=== PATIENT | female | born 1995 | race African-American/Black ===

== ENCOUNTER 2016-07-10 17:44 | Emergency (ER) | payer OTHER ==
[~2016-07-10] VITALS: Ht 162.6 cm; Wt 95.3 kg
[2016-07-10 18:19] VITALS: TEMP 36.8; Ht 162.6 cm; Wt 95.3 kg
[2016-07-10 18:50] LABS: BASO % 0.2 %; BASO ABS # 0.02 K/uL (0-0.2); COMPLETE YES; EOS % 3.6 %; HEMATOCRIT 37.3 % (37-47); IG% 0.2 %; LYMPH % 45.4 %; LYMPH ABS # 3.66 K/uL (1.2-3.4); MEAN CELL VOLUME 87.8 fL (80-100); MEAN CORPUSCULAR HEMOGLOBIN 28.9 pg (25-34); MONO % 6.2 %; NEUT % 44.4 %; PLATELET COUNT 355 K/uL (130-400); RED BLOOD COUNT 4.25 M/uL (4.2-5.4); WHITE BLOOD COUNT 8.07 K/uL (4.8-10.8)
[2016-07-10 19:01] LABS: URINE APPEARANCE CLOUDY (CLEAR); URINE BILIRUBIN NEG (NEG); URINE COLOR YELLOW; URINE EPITHELIAL CELL AUTO >30 /lpf (0-5); URINE NITRITE NEG (NEG); URINE PH 7.5 (4.5-7.5); URINE SPECIFIC GRAVITY 1.029 (1.000-1.030); UROBILINOGEN NEG (NEG); ZZUR CULT IF INDIC CLEAN CATCH YES
[2016-07-10 19:05] LABS: MANUAL MICROSCOPIC REQUIRED? NO; REVIEW REQ? NO
[2016-07-10 19:13] LABS: ALT/SGPT 28 U/L (12-78); AST/SGOT 19 U/L (15-37); BLOOD UREA NITROGEN 16 mg/dl (7-18); BUN/CREATININE RATIO 18.5 (10-20); CALCIUM 8.7 mg/dl (8.5-10.1); CARBON DIOXIDE 27 mmol/L (21-32); CHLORIDE 105 mmol/L (98-107); CREATININE 0.89 mg/dl (0.60-1.20); GLUCOSE 87 mg/dl (70-99); POTASSIUM 3.8 mmol/L (3.5-5.1); SODIUM 139 mmol/L (136-145)
[2016-07-10 19:16] LABS: ALKALINE PHOSPHATASE 71 U/L (45-117)
--- NOTE | 2016-07-10 19:22 | DIAGNOSTIC IMAGING REPORT ---
KUB HISTORY: constipation, lower abdominal pain COMPARISON: None. FINDINGS: No dilated loops of small bowel to suggest an obstruction. There is gas without throughout the colon. There is moderate well-formed stool within the ascending colon and sigmoid colon. No renal calculi. No ureteral calculi. No pneumoperitoneum or pneumatosis. IMPRESSION: No evidence for bowel obstruction. Moderate stool and gas within the colon. Electronically signed by: Vidal Caldera M.D. 07/10/2016 7:20 PM Dictated Date/Time: 07/10/2016 7:19 PM
[2016-07-10] MEDS ORDERED: IBUP-1451 PO (19:30)
[2016-07-10] MEDS ORDERED: MULT-506 PO (19:30)
[2016-07-10] MEDS ORDERED: BCPILLS PO (19:30)
[2016-07-10] MEDS ORDERED: BISA-16 PO (19:31)
[2016-07-10] MEDS ORDERED: PROM12.57 PO (19:36)
[2016-07-10] MEDS ORDERED: VNTHFA/IN INH (19:39)
[2016-07-10] MEDS ORDERED: EYED OPB (19:39)
[2016-07-10] MEDS ORDERED: KETOROLAC TROMETHAMINE 30 MG/ML VIAL IV STA (19:49)
--- NOTE | 2016-07-10 20:50 | DIAGNOSTIC IMAGING REPORT ---
PELVIC ULTRASOUND, TRANSABDOMINAL AND TRANSVAGINAL HISTORY: eval for ovarian cyst, lower pelvic pain COMPARISON: None. FINDINGS: Uterus: 7.6 x 4.6 x 4.0 cm. There is 9 mm hypoechoic lesion within the left side of the uterus. This favors a small fibroid. The uterus is retroflexed. Endometrial stripe: 1.2 cm in thickness. This is within normal limits given the patient's age. Right ovary: Normal in size and demonstrates normal color flow. Left ovary: Normal in size and demonstrates normal color flow. A dominant 1.9 cm follicle/cyst. Miscellaneous:Small amount of pelvic free fluid. IMPRESSION: 1. Normal bilateral ovaries. 2. Small amount of pelvic free fluid which may be physiologic. 3. A 9 mm hypoechoic lesion within the left side of the uterus which favors a small fibroid. Electronically signed by: Vidal Caldera M.D. 07/10/2016 8:48 PM Dictated Date/Time: 07/10/2016 8:46 PM
[2016-07-10] MEDS ORDERED: SOD PHOSPHATE/SOD BIPHOSPHATE ENEMA 132 ML BTL PR STA (21:20)
[2016-07-10] MEDS ORDERED: MAGNESIUM CITRATE 296 ML/BTL PO ONE (21:30)
[2016-07-10 21:44] VITALS: BP 107/51; PULSE 78; O2SAT 99
--- NOTE | 2016-07-11 03:17 | EMERGENCY ROOM VISIT NOTE ---
History Report prepared by Luz Elena: Rayo Evans Under the Supervision of: Dr. Puneet Barreto M.D. First contact with patient: 18:24 Chief Complaint: ABDOMINAL PAIN Stated Complaint: ABDOMINAL PAIN, STREP THROAT History of Present Illness The patient is a 21 year old female who presents to the Emergency Room with complaints of persistent bilateral lower abdominal pain staring about an hour ago. She did not have a bowel movement for the past 2 weeks. She has a history of similar pain occurring with severe constipation. She describes her current pain to be similar to her prior pain with constipation but reports the severity of her current pain is much worse than normal. She currently rates a pain intensity of "20/10". Her last abdominal pain flare up that was similar to her current one was about 2 months ago. She has laxatives but has not been taking it as prescribed. She denies any history of abdominal surgeries. The patient also complains of sorethroat occurring for the past 2 days. She has a history of strep throat. She is unsure about any recent ill contacts. Pt denies LOC, headache, fevers, chills, diaphoresis, visual changes, neck pain, chest pain, breathing difficulties, nausea, vomiting, back pain, melena, hematochezia, urinary symptoms, vaginal discharge, numbness, weakness, lymphadenopathy, rash, or other complaints. Her last normal menstrual period was 2 weeks ago. She is currently sexually active and uses protection. Source of History: patient Onset: about an hour ago Position: abdomen (bilateral lower) Symptom Intensity: "20/10" Timing: other (persistent) Associated Symptoms: + sorethroat Review of Systems See HPI for pertinent positives and negatives. A total of ten systems were reviewed and were otherwise negative. Past Medical & Surgical Medical Problems: (1) Asthma (2) Constipation Family History Cancer Diabetes mellitus Gallbladder disease Heart disease Hypertension Social History Smoking Status: Current Some Day Smoker Alcohol Use: occasionally Drug Use: none Marital Status: single Housing Status: lives with roommate Occupation Status: student Current/Historical Medications Scheduled Control Pills ( Control Pills), 1 TAB PO DAILY Eye Drops (Eye Drops), 2 DROPS OPB DAILY Multivitamin (Multivitamin), 1 TAB PO DAILY Scheduled PRN Albuterol Hfa (Ventolin Hfa), 2-4 PUFFS INH Q6H PRN for SOB/Wheezing Bisacodyl (Dulcolax), 2 TAB PO UD PRN for Constipation Ibuprofen Tab (Motrin), 800 MG PO BID PRN for Pain Promethazine (Phenergan ), 12.5 MG PO Q4H PRN for Nausea Allergies Coded Allergies: Apple (Verified Allergy, Unknown, unknown, 07/10/16) Pineapple (Verified Allergy, Unknown, unknown, 07/10/16) Physical Exam Vital Signs Date Time Temp Pulse Resp B/P Pulse Ox O2 Delivery O2 Flow Rate FiO2 07/10/16 21:44 78 18 107/51 99 07/10/16 20:47 95 18 107/75 98 Room Air 07/10/16 19:23 84 18 129/90 100 Room Air 07/10/16 18:19 36.8 105 16 125/79 96 Room Air Physical Exam GENERAL: Awake, alert, well-appearing, in no distress HENT: Normocephalic, atraumatic. Oropharynx unremarkable. Uvula midline. Tonsils unremarkable. EYES: Normal conjunctiva. Sclera non-icteric. NECK: Supple. No nuchal rigidity or meningismus. FROM. No JVD. RESPIRATORY: Clear to auscultation. CARDIAC: Regular rate, normal rhythm. Extremities warm and well perfused. Pulses equal. ABDOMEN: Soft, non-distended. Bilateral mild lower quadrant tenderness to palpation. No rebound or guarding. No masses. RECTAL: Deferred. MUSCULOSKELETAL: Chest examination reveals no tenderness. The back is symmetrical on inspection without obvious abnormality. There is no CVA tenderness to palpation. No joint edema. LOWER EXTREMITIES: Calves are equal size bilaterally and non-tender. No edema. No discoloration. NEURO: Normal sensorium. No sensory or motor deficits noted. SKIN: No rash or jaundice noted. Medical Decision & Procedures ER Provider Diagnostic Interpretation: X ray results as stated below per my interpretation and radiologist interpretation. US results as stated below per my review and radiologist interpretation. PELVIC ULTRASOUND, TRANSABDOMINAL AND TRANSVAGINAL HISTORY: eval for ovarian cyst, lower pelvic pain COMPARISON: None. FINDINGS: Uterus: 7.6 x 4.6 x 4.0 cm. There is 9 mm hypoechoic lesion within the left side of the uterus. This favors a small fibroid. The uterus is retroflexed. Endometrial stripe: 1.2 cm in thickness. This is within normal limits given the patient's age. Right ovary: Normal in size and demonstrates normal color flow. Left ovary: Normal in size and demonstrates normal color flow. A dominant 1.9 cm follicle/cyst. Miscellaneous:Small amount of pelvic free fluid. IMPRESSION: 1. Normal bilateral ovaries. 2. Small amount of pelvic free fluid which may be physiologic. 3. A 9 mm hypoechoic lesion within the left side of the uterus which favors a small fibroid. Electronically signed by: Vidal Caldera M.D. 07/10/2016 8:48 PM Dictated Date/Time: 07/10/2016 8:46 PM KUB HISTORY: constipation, lower abdominal pain COMPARISON: None. FINDINGS: No dilated loops of small bowel to suggest an obstruction. There is gas without throughout the colon. There is moderate well-formed stool within the ascending colon and sigmoid colon. No renal calculi. No ureteral calculi. No pneumoperitoneum or pneumatosis. IMPRESSION: No evidence for bowel obstruction. Moderate stool and gas within the colon. Electronically signed by: Vidal Caldera M.D. 07/10/2016 7:20 PM Dictated Date/Time: 07/10/2016 7:19 PM Laboratory Results 07/10/16 18:30 Red Blood Count 4.25, Mean Corpuscular Volume 87.8, Mean Corpuscular Hemoglobin 28.9, Mean Corpuscular Hemoglobin Concent 33.0, Mean Platelet Volume 10.0, Neutrophils (%) (Auto) 44.4, Lymphocytes (%) (Auto) 45.4, Monocytes (%) (Auto) 6.2, Eosinophils (%) (Auto) 3.6, Basophils (%) (Auto) 0.2, Neutrophils # (Auto) 3.58, Lymphocytes # (Auto) 3.66, Monocytes # (Auto) 0.50, Eosinophils # (Auto) 0.29, Basophils # (Auto) 0.02 07/10/16 18:30 Test 07/10/16 18:30 07/10/16 18:38 White Blood Count 8.07 K/uL (4.8-10.8) Red Blood Count 4.25 M/uL (4.2-5.4) Hemoglobin 12.3 g/dL (12.0-16.0) Hematocrit 37.3 % (37-47) Mean Corpuscular Volume 87.8 fL (80-100) Mean Corpuscular Hemoglobin 28.9 pg (25-34) Mean Corpuscular Hemoglobin Concent 33.0 g/dl (32-36) Platelet Count 355 K/uL (130-400) Mean Platelet Volume 10.0 fL (7.4-10.4) Neutrophils (%) (Auto) 44.4 % Lymphocytes (%) (Auto) 45.4 % Monocytes (%) (Auto) 6.2 % Eosinophils (%) (Auto) 3.6 % Basophils (%) (Auto) 0.2 % Neutrophils # (Auto) 3.58 K/uL (1.4-6.5) Lymphocytes # (Auto) 3.66 K/uL (1.2-3.4) Monocytes # (Auto) 0.50 K/uL (0.11-0.59) Eosinophils # (Auto) 0.29 K/uL (0-0.5) Basophils # (Auto) 0.02 K/uL (0-0.2) RDW Standard Deviation 44.5 fL (36.4-46.3) RDW Coefficient of Variation 13.9 % (11.5-14.5) Immature Granulocyte % (Auto) 0.2 % Immature Granulocyte # (Auto) 0.02 K/uL (0.00-0.02) Anion Gap 7.0 mmol/L (3-11) Est Creatinine Clear Calc Drug Dose 111.1 ml/min Estimated GFR () 106.6 Estimated GFR (Non- 92.0 BUN/Creatinine Ratio 18.5 (10-20) Calcium Level 8.7 mg/dl (8.5-10.1) Total Bilirubin 0.2 mg/dl (0.2-1) Direct Bilirubin < 0.1 mg/dl (0-0.2) Aspartate Amino Transf (AST/SGOT) 19 U/L (15-37) Alanine Aminotransferase (ALT/SGPT) 28 U/L (12-78) Alkaline Phosphatase 71 U/L (45-117) Total Protein 8.1 gm/dl (6.4-8.2) Albumin 3.9 gm/dl (3.4-5.0) Lipase 152 U/L (73-393) Urine Color YELLOW Urine Appearance CLOUDY (CLEAR) Urine pH 7.5 (4.5-7.5) Urine Specific Cres[place] 1.029 (1.000-1.030) Urine Protein NEG (NEG) Urine Glucose (UA) NEG (NEG) Urine Ketones TRACE (NEG) Urine Occult Blood NEG (NEG) Urine Nitrite NEG (NEG) Urine Bilirubin NEG (NEG) Urine Urobilinogen NEG (NEG) Urine Leukocyte Esterase MODERATE (NEG) Urine WBC (Auto) >30 /hpf (0-5) Urine RBC (Auto) 0-4 /hpf (0-4) Urine Hyaline Casts (Auto) 1-5 /lpf (0-5) Urine Epithelial Cells (Auto) >30 /lpf (0-5) Urine Bacteria (Auto) 2+ (NEG) Urine Test NEG (NEG) Laboratory results reviewed by me Medications Administered Medications (Trade) Dose Ordered Sig/Rich Route Start Time Stop Time Status Last Admin Dose Admin Ketorolac Tromethamine (Toradol Inj) 10 mg NOW STAT IV 07/10/16 19:49 07/10/16 19:50 DC 07/10/16 19:49 10 MG Sodium Biphosphate/ Sodium Phosphate (Fleet Enema) 132 ml NOW STAT ND 07/10/16 21:20 07/10/16 21:22 DC 07/10/16 21:20 132 ML Magnesium Citrate (Citrate Of Magnesia Soln) 296 ml NOW ONCE PO 07/10/16 21:30 07/10/16 21:31 DC 07/10/16 21:30 296 ML ED Course 1823: The patient was evaluated in room C01B. A complete history and physical exam was performed. 1948: Toradol Inj 10 mg IV 1951: I reevaluated the patient who is doing well. 2118: I reevaluated the patient. Discussed results and discharge instructions: She verbalized understanding and agreement. The patient is ready for discharge. 2119: Fleet Enema 132 ml ND 2129: Magnesium Citrate 296 ml PO Medical Decision Triage Nursing notes reviewed and agree them. The patient's history was concerning for constipation and abdominal pain. Differential diagnosis: Etiologies such as functional constipation, impaction, obstruction, volvulus, metabolic abnormality, infection, neurologic, ovarian pathology, , as well as others were entertained. Physical examination findings: As above. No peritoneal findings. ER treatment provided: Initially the patient declined analgesia. She then requested something for pain. She was given a dose of IV Toradol. On reassessment the patient felt better. Diagnostics interpreted by me: The labs revealed a normal CBC, chemistry panel, LFTs, lipase and rather unremarkable urinalysis. There was some bacteria and skin cells. The patient has no urinary symptoms. Imaging studies: X-rays and ultrasound as above After the above assessment the patient was reevaluated. She is doing very well. Her strep test was negative. The patient has moderate stool noted and has had many years worth of abdominal issues and constipation. She noted the same type of pain although it was worse. Without significant intervention her pain was much better. I avoided narcotics as this would be a significant issue with her constipation problems. The patient has had no vaginal symptoms. She is not . No significant ovarian pathology noted. I discussed treatment of the constipation issues. The patient did not want to have medication or treatment initiated here she wanted treatment to go home with. The patient was given a Fleet Enema and magnesium citrate with instructions. I did ask for her to follow up closely. I did recommend a high-fiber diet. If she worsens in anyway the patient will be pack to the Emergency Room for reevaluation. By the evaluation outlined above emergent etiologies such as obstruction, volvulus, metabolic abnormality, infection , neurologic, ectopic , appendicitis, diverticulitis, colitis, ovarian pathology, strep pharyngitis, retropharyngeal abscess, peritonsillar abscess, as well as others were deemed relatively unlikely. The patient was informed about the findings as listed above. All questions were answered and she was pleased with the treatment. Return instructions were outlined and the patient was discharged in stable condition. Outpatient prescription management: Magnesium citrate Fleet Enema Referral: The patient was referred back to their primary care physician for follow-up in 2 to 3 days for a recheck of the current condition. The chart was completed utilizing [employer] Speech voice recognition software. Grammatical errors, random word insertions, pronoun errors, and incomplete sentences are an occasional consequence of this system due to software limitations, ambient noise, and hardware issues. Any formal questions or concerns about the content, text, or information contained within the body of this dictation should be directly addressed to the physician for clarification. Impression Primary Impression: Lower abdominal pain Additional Impressions: Constipation Sore throat Scribe Attestation The scribe's documentation has been prepared under my direction and personally reviewed by me in its entirety. I confirm that the note above accurately reflects all work, treatment, procedures, and medical decision making performed by me. Departure Information Dispostion Home / Self-Care Referrals [facility] HOME CARE DOCUMENTATION FORM, IMPORTANT VISIT INFORMATION Patient Instructions Diet High Fiber [facility] Additional Instructions Magnesium citrate, 1/2 bottle for constipation. If you don't have a good bowel movement in 8 hrs then drink the other half. This is available over-the- counter. Rest and drink plenty of fluids. Fleets enema: Use one as instructed if the magnesium citrate doesn't work. Increase fiber in your diet. Return to the ER for worsening abdominal pain, vomiting, fevers, bloody stools, or as needed. Follow-up with your primary care physician in 2 to 3 days for a recheck of your current condition. Problem Qualifiers
== END 2016-07-10 21:45 | disposition home or self-care (01) ==
LOC: C.EDB 17:47 → C.EDC 21:45
DX: R10.30 Lower abdominal pain, unspecified (principal); K59.00 Constipation, unspecified; J02.9 Acute pharyngitis, unspecified; J45.909 Unspecified asthma, uncomplicated; F17.200 Nicotine dependence, unspecified, uncomplicated; N85.9 Noninflammatory disorder of uterus, unspecified; Z79.3 Long term (current) use of hormonal contraceptives